=== PATIENT | male | born 1990 | race Hispanic/Latino ===

== ENCOUNTER 2018-06-19 15:04 | Emergency (ER) | payer OTHER ==
[~2018-06-19] VITALS: Ht 172.7 cm; Wt 85.5 kg
[2018-06-19 15:04] VITALS: BP 142/79
[2018-06-19] MEDS ORDERED: BACIOI EXT (15:21)
[2018-06-19] MEDS ORDERED: METH4TAB28 PO (15:21)
[2018-06-19] MEDS ORDERED: BACT800T5 PO (16:38)
[2018-06-19] MEDS ORDERED: BACTRIM 160MG/800MG DS TAB PO ONE (16:45)
== END 2018-06-19 16:58 | disposition home or self-care (01) ==
LOC: M ED 15:04
DX: L01.03 Bullous impetigo (principal); Z79.52 Long term (current) use of systemic steroids; Z79.2 Long term (current) use of antibiotics